=== PATIENT | male | born 1995 | race Caucasian/White ===

== ENCOUNTER 2018-10-03 12:36 | Emergency (ER) | payer BC ==
[2018-10-03 12:53] VITALS: TEMP 98.7
--- NOTE | 2018-10-03 13:26 | ED ---
General Adult HPI - General Chief complaint: Fall Stated complaint: Fall off ladder 6 ft Time Seen by Provider: 10/03/18 13:09 Source: patient, RN notes reviewed Mode of arrival: ambulatory Limitations: no limitations - History of Present Illness Initial comments: Patient 22-year-old male presented to the emergency room today with a chief complaint of a fall that occurred approximately 4 hours ago. Patient does admit that he was climbing on a ladder trying to get onto a one story roof of a house when the ladder slipped on ice and he fell down with a ladder landing on top of it. Patient does admit that he was on his left side. He does admit that he hit the left side of his head. Did not lose consciousness. Does admit to headache. Admits to a small laceration to the left elbow. He states tetanus is up-to-date. He admits to some pain to the left thigh. He states that pain was getting worse so he came here to the emergency room to be evaluated. Patient denies any recent fever, chills, shortness of breath, chest pain, back pain, abdominal pain, nausea or vomiting, numbness or tingling, visual changes, or any other complaints. - Related Data Previous Rx's Medication Instructions Recorded Ibuprofen [Motrin] 600 mg PO Q6HR PRN #30 day 10/03/18 Allergies Allergy/AdvReac Type Severity Reaction Status Date / Time No Known Allergies Allergy Verified 02/06/16 12:46 Review of Systems ROS Statement: Those systems with pertinent positive or pertinent negative responses have been documented in the HPI. ROS Other: All systems not noted in ROS Statement are negative. Past Medical History Past Medical History: No Reported History History of Any Multi-Drug Resistant Organisms: None Reported Past Surgical History: No Surgical Hx Reported Past Psychological History: No Psychological Hx Reported Smoking Status: Former smoker Past Alcohol Use History: Occasional Past Drug Use History: Marijuana General Exam - General Exam Comments Initial Comments: General: The patient is awake and alert, in no distress, and does not appear acutely ill. Eye: Pupils are equal, round and reactive to light, extra-ocular movements are intact. No nystagmus. There is normal conjunctiva bilaterally. No signs of icterus. Ears, nose, mouth and throat: There are moist mucous membranes and no oral lesions. Neck: The neck is supple, there is no tenderness or JVD. Cardiovascular: There is a regular rate and rhythm. No murmur, rub or gallop is appreciated. Respiratory: Lungs are clear to auscultation, respirations are non-labored, breath sounds are equal. No wheezes, stridor, rales, or rhonchi. Gastrointestinal: Soft, non-distended, non-tender abdomen without masses or organomegaly noted. There is no rebound or guarding present. No CVA tenderness. Musculoskeletal: Normal ROM. Patient has normal appearance cervical, thoracic and lumbar spine with no step-off or deformity. No tenderness midline. Patient does have some mild tenderness in for aspect of the left wrist. No bony tenderness to the left shoulder, left elbow. There is a superficial laceration to the left elbow measures approximately 2 cm has no active bleeding. Patient does have tenderness to the distal lateral aspect of the left femur. No tenderness to the hips bilaterally are down to the knees or ankles. Strength 5/5. Sensation intact. Pulses equal bilaterally 2+. Neurological: A&O x 3. CN II-XII intact, There are no obvious motor or sensory deficits. Coordination appears grossly intact. Speech is normal. Skin: Skin is warm and dry and no rashes or lesions are noted. Psychiatric: Cooperative, appropriate mood & affect, normal judgment. Limitations: no limitations Course Vital Signs 10/03/18 12:49 Temperature 98.7 F Pulse Rate 72 Respiratory 18 Rate Blood Pressure 121/70 O2 Sat by Pulse 98 Oximetry Medical Decision Making - Medical Decision Making Patient's CT is negative. X-rays reviewed negative for any acute fracture dislocation. Results were discussed with the patient. Patient will be discharged home. He is advised to follow-up family doctor return to emergency room if any symptoms increase worsen or for any other concerns. Disposition Clinical Impression: Fall, Contusion of leg, left, Head injury Disposition: HOME SELF-CARE Condition: Good Instructions: Head Injury (ED) Additional Instructions: Please use medication as discussed. Please follow-up with family doctor in the next 2 days of symptoms have not improved. Please return to emergency room if the symptoms increase or worsen or for any other concerns. Prescriptions: Ibuprofen [Motrin] 600 mg PO Q6HR PRN #30 day PRN Reason: Pain Is patient prescribed a controlled substance at d/c from ED?: No Referrals: Nelson Yu DO [Primary Care Provider] - 1-2 days Time of Disposition: 14:30
--- NOTE | 2018-10-03 13:55 | CT ---
EXAMINATION TYPE: CT brain carlie loya DATE OF EXAM: 10/03/2018 COMPARISON: None HISTORY: Pain CT DLP: 1282.[address] Brain: Unenhanced CT of the brain was performed. The ventricles, basal cisterns and sulci overlying the cerebral convexities demonstrate a normal appe arance. There is no evidence for intracranial hemorrhage or sulcal effacement. No mass effects are seen. If symptoms persist consider MRI. Osseous calvarium is intact. Moderate chronic sinusitis right greater than left. IMPRESSION: No acute intracranial process CT Cervical Spine: Unenhanced CT of the cervical spine was performed with bone and soft tissue window settings submitted . Coronal and sagittal reconstruction is obtained. There is normal alignment and prevertebral soft tissues. I do not see evidence for fracture or sublu xation. No significant degenerative changes are present. The lung apices are clear. IMPRESSION: No evidence for acute fracture or subluxation of the cervical spine.
--- NOTE | 2018-10-03 13:56 | XR ---
EXAMINATION TYPE: XR chest 2V DATE OF EXAM: 10/03/2018 COMPARISON: NONE HISTORY: Chest pain TECHNIQUE: Frontal and lateral views of the chest are obtained. FINDINGS: There is no focal air space opacity. No evidence for pneumothorax. No pleural effusion. The cardiac silhouette size is within normal limits. The osseous structures are grossly intact. IMPRESSION: 1. No acute cardiopulmonary process.
--- NOTE | 2018-10-03 13:57 | XR ---
EXAMINATION TYPE: XR wrist complete LT DATE OF EXAM: 10/03/2018 CLINICAL HISTORY: pain TECHNIQUE: Frontal, lateral and oblique images of the left wrist are obtained. Additional scaphoid v iew obtained. COMPARISON: None. FINDINGS: There is no acute fracture/dislocation evident. The joint spaces appear within normal esteves its. The overlying soft tissue appears unremarkable. IMPRESSION: There is no acute fracture or dislocation seen. ICD 10 NO FRACTURE, INITIAL EVALUATION
--- NOTE | 2018-10-03 13:58 | XR ---
EXAMINATION TYPE: XR femur LT DATE OF EXAM: 10/03/2018 CLINICAL HISTORY: pain TECHNIQUE: Two views of the left femur are obtained. COMPARISON: None. FINDINGS: There is no acute fracture or dislocation seen of the femur. The hip and knee joints gali ear within normal limits. The overlying soft tissue appears unremarkable. IMPRESSION: There is no acute fracture or dislocation seen of the femur. ICD 10 NO FRACTURE, INITIAL EVALUATION
[2018-10-03 14:56] VITALS: BP 133/63; PULSE 81; RESP 16
== END 2018-10-03 14:55 | disposition home or self-care (01) ==
LOC: EC 12:36
DX: S51.012A Laceration without foreign body of left elbow, initial encounter (principal); S70.12XA Contusion of left thigh, initial encounter; S09.90XA Unspecified injury of head, initial encounter; Z87.891 Personal history of nicotine dependence; W11.XXXA Fall on and from ladder, initial encounter
CPT/HCPCS: 70450; 71046; 72125; 99284

== ENCOUNTER 2019-01-15 05:50 | Emergency (ER) | payer BC ==
[2019-01-15 06:02] VITALS: BP 118/73; PULSE 58; RESP 18; TEMP 98.2
[2019-01-15] MEDS ORDERED: LIDOCAINE 5% PATCH TOPICAL STA (06:24)
--- NOTE | 2019-01-15 06:24 | ED ---
General Adult HPI - General Chief complaint: Chest Pain Stated complaint: Chest Pain Time Seen by Provider: 01/15/19 06:12 Source: patient Mode of arrival: ambulatory Limitations: no limitations - History of Present Illness Initial comments: Dictation was produced using [employer] dictation software. please excuse any grammatical, word or spelling errors. Chief Complaint: 23-year-old male presents with chief complaint of chest pain. History of Present Illness: Patient 23-year-old male presents with chest pain. Patient states 2 days ago he lifted a heavy air compressor. 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 Patient states she'll with that. Immediately after he began expressing some chest pain. Patient states he has pain. He coughs, sneezes or presses his anterior chest. Denies any cardiac history. No family history of cardiac disease. No history of sudden cardiac in the family. Patient denies any shortness of breath. He otherwise by his feels well. The ROS documented in this emergency department record has been reviewed and confirmed by me. Those systems with pertinent positive or negative responses have been documented in the HPI. All other systems are other negative and/or noncontributory. PHYSICAL EXAM: General Impression: Alert and oriented x3, not in acute distress HEENT: Normocephalic atraumatic, extra-ocular movements intact, pupils equal and reactive to light bilaterally, mucous membranes moist. Cardiovascular: Heart regular rate and rhythm, S1&S2 audible, no murmurs, rubs or gallops Chest: Lungs clear to auscultation bilaterally, no rhonchi, no wheeze, no rales, tenderness to palpation at the anterior sternum Abdomen: Bowel sounds present, abdomen soft, non-tender, non-distended, no o rganomegaly Musculoskeletal: Pulses present and equal in all extremities, no peripheral edema Motor: no focal deficits noted Neurological: CN II-XII grossly intact, no focal motor or sensory deficits noted Skin: Intact with no visualized rashes Psych: Normal affect and mood ED course: 23-year-old male presents with atypical chest pain. Vital signs upon arrival are within acceptable limits. EKG and chest x-ray benign. Patient provided with lidocaine patch. advised to rest. Told to take [id number] Motrin for pain symptoms. EKG interpretation: Ventricular rate 51, sinus bradycardia cardiac, VT interval 16, QS 90, QTC 394. No VT prolongation, no QTC prolongation, no ST or T-wave changes noted. Overall, this EKG is unremarkable - Related Data Previous Rx's Medication Instructions Recorded Ibuprofen [Motrin] 600 mg PO Q6HR PRN #30 day 10/03/18 Allergies Allergy/AdvReac Type Severity Reaction Status Date / Time No Known Allergies Allergy Verified 02/06/16 12:46 Review of Systems ROS Statement: Those systems with pertinent positive or pertinent negative responses have been documented in the HPI. ROS Other: All systems not noted in ROS Statement are negative. Past Medical History Past Medical History: No Reported History History of Any Multi-Drug Resistant Organisms: None Reported Past Surgical History: No Surgical Hx Reported Past Psychological History: No Psychological Hx Reported Smoking Status: Former smoker Past Alcohol Use History: Occasional Past Drug Use History: Marijuana General Exam Limitations: no limitations Course Vital Signs 01/15/19 05:58 Temperature 98.2 F Pulse Rate 58 L Respiratory 18 Rate Blood Pressure 118/73 O2 Sat by Pulse 96 Oximetry Disposition Clinical Impression: Chest wall muscle strain Disposition: HOME SELF-CARE Condition: Good Instructions (If sedation given, give patient instructions): Costochondritis (ED) Is patient prescribed a controlled substance at d/c from ED?: No Referrals: Nelson Yu DO [Primary Care Provider] - 1-2 days Time of Disposition: 06:50
--- NOTE | 2019-01-15 06:52 | XR ---
EXAMINATION TYPE: XR chest 2V DATE OF EXAM: 01/15/2019 COMPARISON: Chest x-ray October 03, 2018 HISTORY: Chest pain. TECHNIQUE: Frontal and lateral views of the chest are obtained. FINDINGS: There is no focal air space opacity, pleural effusion, or pneumothorax seen. The cardiac silhouette size is within normal limits. The osseous structures are intact. IMPRESSION: No acute cardiopulmonary process. No significant change from prior.
== END 2019-01-15 07:00 | disposition home or self-care (01) ==
LOC: EC 05:50
DX: S29.011A Strain of muscle and tendon of front wall of thorax, initial encounter (principal); R00.1 Bradycardia, unspecified; Z87.891 Personal history of nicotine dependence; X50.0XXA Overexertion from strenuous movement or load, initial encounter; Y92.69 Other specified industrial and construction area as the place of occurrence of the external cause
CPT/HCPCS: 71046; 93005; 99283